=== PATIENT | female | born 1990 | race Caucasian/White ===

== ENCOUNTER 2018-10-02 22:36 | Emergency (ER) | payer OTHER ==
[~2018-10-02] VITALS: Wt 140.8 kg
[~2018-10-02 22:36] MED LIST: CIPR500T4 PO; NAPR-985 PO
--- NOTE | 2018-10-02 22:58 | ERD ---
ER Documentation Chief Complaint Chief Complaint andujar HPI The patient is a 28-year-old female, presenting to the ER because of migraine for the last 2 days. She recently found out that she is and is unable to see her physician. She is supposed to take metoprolol and hydrochlorothiazide for her hypertension but has weaned herself off the metoprolol a week ago, only began to take her hydrochlorothiazide this morning around 9 AM. She has similar migraine like this before when she was taking metoprolol, denies blurred vision, fever, facial pain, neck pain, chest pain, dyspnea, abdominal pain, vomiting, dizzy, diarrhea. She does not smoke nor drink, 2 para 1, LMP was August 21, 2018 Past medical history: Hypertension, migraine, dyslipidemia, diabetes mellitus Past surgical history ROS All systems reviewed and are negative except as per history of present illness. Medications Home Meds Active Scripts Naproxen* (Naprosyn*) 500 Mg Tablet, 500 MG PO BID PRN for PAIN AND/OR INFLAMMATION, #30 TAB Prov:CHINO BRAUN PA-C 08/06/15 Ciprofloxacin Hcl* (Ciprofloxacin Hcl*) 500 Mg Tablet, 500 MG PO BID for 10 Days, TAB Prov:CHINO BRAUN PA-C 08/06/15 Allergies Allergies: Coded Allergies: No Known Allergy (Unverified , 10/02/18) PMhx/Soc History of Surgery: Yes () Anesthesia Reaction: Yes Hx Neurological Disorder: No Hx Respiratory Disorders: No Hx Cardiac Disorders: No Hx Psychiatric Problems: No Hx Miscellaneous Medical Probl: Yes (HTN, PREDIABETES) Hx Alcohol Use: No Hx Substance Use: No Hx Tobacco Use: Yes Physical Exam Vitals Vital Signs Date Temp Pulse Resp B/P (MAP) Pulse Ox O2 O2 Flow FiO2 Time Delivery Rate 10/03/18 70 18 157/73 99 Room Air 01:16 (101) 10/02/18 100.1 113 22 189/91 99 22:42 (123) Physical Exam Const: No acute distress. Head: Atraumatic. Eyes: Normal Conjunctiva. ENT: Normal External Ears, Nose and Mouth. Neck: Full range of motion. No meningismus. Resp: Clear to auscultation bilaterally. Cardio: Regular rate and rhythm. Abd: Soft, obese, normal bowel sounds, non tender. Skin: No petechiae or rashes. Back: No midline or flank tenderness. Ext: No cyanosis, or edema. Neur: Awake and alert. No focal deficit Psych: Normal Mood and Affect. Result Diagram: 10/02/18 2316 10/02/18 2316 Results 24 hrs Laboratory Tests Test 10/02/18 23:15 10/02/18 23:16 Bedside Urine pH (LAB) 6.0 Bedside Urine Protein (LAB) Trace Bedside Urine Glucose (UA) Negative Bedside Urine Ketones (LAB) 1+ Bedside Urine Blood Negative Bedside Urine Nitrite (LAB) Negative Bedside Urine Leukocyte Esterase (L Negative White Blood Count 13.9 10^3/ul Red Blood Count 4.70 10^6/ul Hemoglobin 13.4 g/dl Hematocrit 41.7 % Mean Corpuscular Volume 88.7 fl Mean Corpuscular Hemoglobin 28.5 pg Mean Corpuscular Hemoglobin Concent 32.1 g/dl Red Cell Distribution Width 14.4 % Platelet Count 282 10^3/UL Mean Platelet Volume 11.5 fl Immature Granulocytes % 0.600 % Neutrophils % 63.7 % Lymphocytes % 28.1 % Monocytes % 5.3 % Eosinophils % 1.7 % Basophils % 0.6 % Nucleated Red Blood Cells % 0.0 /100WBC Immature Granulocytes # 0.080 10^3/ul Neutrophils # 8.9 10^3/ul Lymphocytes # 3.9 10^3/ul Monocytes # 0.7 10^3/ul Eosinophils # 0.2 10^3/ul Basophils # 0.1 10^3/ul Nucleated Red Blood Cells # 0.0 10^3/ul Sodium Level 138 mmol/L Potassium Level 3.8 mmol/L Chloride Level 99 mmol/L Carbon Dioxide Level 29 mmol/L Anion Gap 10 Blood Urea Nitrogen 11 mg/dl Creatinine 0.85 mg/dl Est Glomerular Filtrat Rate mL/min > 60 mL/min Glucose Level 204 mg/dl Calcium Level 10.2 mg/dl Beta HCG, Quantitative 854.4 mIU/ml Procedures/MDM MEDICAL MAKING DECISION: The patient is a 28-year-old female, presenting with acute migraine She is stable for outpatient follow-up. Blood pressure improved without any treatment The differential diagnoses considered include but are not limited to subarachnoid hemorrhage, occult trauma, CVA, meningitis, encephalitis, hypertension, tension, migraine, cluster, narcotic withdrawal, cervical spine disease. Departure Diagnosis: Primary Impression: Migraine Additional Impression: Accelerated hypertension Condition: Good Comments I discussed the findings with the patient. I advised the patient to follow-up with the primary physician in the morning and stop HCTZ, and return if any concern. Disclaimer: Inadvertent spelling and grammatical errors are likely due to EHR/dictation software use and do not reflect on the overall quality of patient care. Also, please note that the electronic time recorded on this note does not necessarily reflect the actual time of the patient encounter. BOSTON CASTRO MD October 02, 2018 22:58
[2018-10-03 01:16] VITALS: BP 157/73; PULSE 70; RESP 18
== END 2018-10-03 01:58 | disposition home or self-care (01) ==
LOC: E/R 22:36
DX: O99.89 Other specified diseases and conditions complicating pregnancy, childbirth and the puerperium (principal); G43.909 Migraine, unspecified, not intractable, without status migrainosus; O10.011 Pre-existing essential hypertension complicating pregnancy, first trimester; Z3A.01 Less than 8 weeks gestation of pregnancy; Z87.891 Personal history of nicotine dependence
CPT/HCPCS: 36415; 80048; 81003; 84702; 85025; Z7502; 99283

== ENCOUNTER 2019-01-07 11:28 | Emergency (ER) | payer OTHER ==
[~2019-01-07] VITALS: Ht 162.6 cm; Wt 138.3 kg
[2019-01-07 11:51] VITALS: BP 150/78; PULSE 89; RESP 20; Ht 162.6 cm; Wt 138.3 kg
== END 2019-01-07 15:18 | disposition home or self-care (01) ==
LOC: FTE 11:28
DX: O26.892 Other specified pregnancy related conditions, second trimester (principal); R10.2 Pelvic and perineal pain; O10.912 Unspecified pre-existing hypertension complicating pregnancy, second trimester; Z3A.19 19 weeks gestation of pregnancy
CPT/HCPCS: 76805; 76817; 81003; Z7502